=== PATIENT | female | born 1945 | race Caucasian/White ===

== ENCOUNTER 2018-10-11 07:49 | Day surgery (SDC) | payer OTHER ==
[2018-10-04 16:03] VITALS: BMI 26.2
[2018-10-11] MEDS ORDERED: PROPOFOL 20 ML ONE ×2 (08:02)
[2018-10-11 09:25] VITALS: TEMP 98
[2018-10-11 09:50] VITALS: BP 110/67; PULSE 77
== END 2018-10-11 09:40 | disposition home or self-care (01) ==
LOC: FASU 07:49
PROVIDERS: ATTEND Internal Medicine Gastroenterology
PROC: 0DJD8ZZ Inspection of Lower Intestinal Tract, Via Natural or Artificial Opening Endoscopic (ICD-10-PCS; principal; 2018-10-11 08:55)
DX: Z12.11 Encounter for screening for malignant neoplasm of colon (principal); Z83.71 Family history of colonic polyps; Z80.0 Family history of malignant neoplasm of digestive organs; K57.30 Diverticulosis of large intestine without perforation or abscess without bleeding; K64.8 Other hemorrhoids

== ENCOUNTER 2023-10-07 14:28 | Emergency (ER) | payer OTHER ==
[2023-10-07 14:40] VITALS: BP 142/78; PULSE 66; RESP 15; TEMP 98.6; BMI 27.9
[2023-10-07] MEDS ORDERED: ACETAMINOPHEN 500 MG TABLET (FP) ONE (15:57)
[2023-10-07] MEDS: ACETAMINOPHEN 500 MG TABLET (FP) PO ONE (15:58)
== END 2023-10-07 16:03 | disposition home or self-care (01) ==
LOC: FER 14:28
DX: S92.912A Unspecified fracture of left toe(s), initial encounter for closed fracture (principal); X50.1XXA Overexertion from prolonged static or awkward postures, initial encounter
CPT/HCPCS: 73660-TC-LT-FY; 99283-25